=== PATIENT | male | born 1985 ===

== ENCOUNTER 2023-03-19 08:54 | Emergency (ER) | payer OTHER ==
[~2023-03-19] VITALS: Ht 182.9 cm; Wt 136.1 kg
[2023-03-19 09:12] VITALS: BP 155/81
[2023-03-19] MEDS ORDERED: CRUTCH4 XX (11:01)
[2023-03-19] MEDS ORDERED: IBUP800 PO (11:47)
[2023-03-19] MEDS ORDERED: Synthroid/Levo0.2 MG (11:55)
[2023-03-19] MEDS ORDERED: VENL25 PO (11:56)
[2023-03-19] MEDS ORDERED: BUPROPION HCL200 M1 PO (11:56)
[2023-03-19] MEDS ORDERED: TECFIDERA120 MG PO (11:57)
== END 2023-03-19 11:54 | disposition home or self-care (01) ==
LOC: ER 08:54
DX: S93.401A Sprain of unspecified ligament of right ankle, initial encounter (principal); G35 Multiple sclerosis; X50.0XXA Overexertion from strenuous movement or load, initial encounter; Z88.8 Allergy status to other drugs, medicaments and biological substances
CPT/HCPCS: 29515; 73610; 73630; 96372-59; 99283-25; A9270; J1885